=== PATIENT | male | born 1950 | race Caucasian/White ===

== ENCOUNTER 2018-02-13 10:18 | Emergency (ER) | payer MEDICARE ==
[~2018-02-13] VITALS: Ht 177.8 cm; Wt 95.3 kg
[~2018-02-13 10:18] MED LIST: ACETAMINOPHEN-1 EAC1 PO; HYDROCODONE-AP1 EAC6 PO; LISINOPRIL5 MG; NORCO 5-325 TA1 EACH PO; OXYCODONE HCL5 M1 PO; OXYCONTIN10 M1 PO; OXYIR5 MG PO; PRILOSEC40 MG PO; PRINIVIL10 MG PO; XANAX 0.5 MG0.5 M1; ZOCOR40 MG PO; ZOFRAN ODT4 MG PO
[2018-02-13] MEDS ORDERED: ZANTAC 150MG T150 MG PO (10:32)
[2018-02-13] MEDS ORDERED: ANTACID168 MG PO (10:32)
[2018-02-13] MEDS ORDERED: TRAMADOL 50 MG50 MG PO (12:11)
[2018-02-13] MEDS ORDERED: MOBIC7.5 MG PO (12:11)
[2018-02-13 12:28] VITALS: BP 131/85
== END 2018-02-13 12:29 | disposition home or self-care (01) ==
LOC: M.ERS 10:18
DX: S93.492A Sprain of other ligament of left ankle, initial encounter (principal); M72.2 Plantar fascial fibromatosis; Z90.49 Acquired absence of other specified parts of digestive tract; Z88.8 Allergy status to other drugs, medicaments and biological substances; W22.8XXA Striking against or struck by other objects, initial encounter; Y93.89 Activity, other specified; Y92.89 Other specified places as the place of occurrence of the external cause; Y99.8 Other external cause status

== ENCOUNTER → 2019-02-01 | Outpatient (CLI) | payer MEDICARE ==
[~2019-02-01] MED LIST changes: +ANTACID168 MG PO; +MOBIC7.5 MG PO; +TRAMADOL 50 MG50 MG PO; +ZANTAC 150MG T150 MG PO
[2019-02-01 12:07] LABS: CALCIUM 10.2 mg/dL (8.5-10.1); CREATININE 0.9 mg/dL (0.6-1.3); POTASSIUM 4.9 mmol/L (3.5-5.1); TOTAL BILIRUBIN 0.8 mg/dL (<0.1-1.0); TOTAL PROTEIN 7.1 g/dL (6.4-8.2)
== END ==
LOC: M.CT 11:22 → M.LAB 11:22 → M.CT 11:30
PROVIDERS: Internal Medicine
DX: K76.0 Fatty (change of) liver, not elsewhere classified (principal); I70.0 Atherosclerosis of aorta; M25.78 Osteophyte, vertebrae; M47.816 Spondylosis without myelopathy or radiculopathy, lumbar region

== ENCOUNTER 2019-02-23 12:45 | Emergency (ER) | payer MEDICARE ==
[~2019-02-23] VITALS: Ht 177.8 cm; Wt 96.2 kg
[2019-02-23] MEDS ORDERED: NORCO 5-325 TA1 EAC1 PO (13:50)
[2019-02-23 14:34] VITALS: BP 130/91
== END 2019-02-23 14:35 | disposition home or self-care (01) ==
LOC: M.ERS 12:45
DX: S20.212A Contusion of left front wall of thorax, initial encounter (principal); I10 Essential (primary) hypertension; K58.9 Irritable bowel syndrome, unspecified; K21.9 Gastro-esophageal reflux disease without esophagitis; Z90.49 Acquired absence of other specified parts of digestive tract; Z88.8 Allergy status to other drugs, medicaments and biological substances; W01.0XXA Fall on same level from slipping, tripping and stumbling without subsequent striking against object, initial encounter; Y93.89 Activity, other specified; Y92.89 Other specified places as the place of occurrence of the external cause; Y99.0 Civilian activity done for income or pay